=== PATIENT | male | born 1980 ===

== ENCOUNTER 2021-10-31 23:11 | Emergency (ER) | payer SELFPAY ==
[2021-11-01] MEDS ORDERED: VALA500 PO (13:12)
== END 2021-11-01 00:40 | disposition left against medical advice (07) ==
LOC: ER 23:11
DX: Z53.21 Procedure and treatment not carried out due to patient leaving prior to being seen by health care provider (principal)

== ENCOUNTER 2021-11-01 11:47 | Emergency (ER) | payer SELFPAY ==
[~2021-11-01] VITALS: Ht 170.2 cm; Wt 68.0 kg
[2021-11-01] MEDS ORDERED: VALA500 PO (13:12)
== END 2021-11-01 13:19 | disposition home or self-care (01) ==
LOC: ER 11:47
DX: K14.6 Glossodynia (principal)
CPT/HCPCS: 99282